=== PATIENT | male | born 1970 | race Two or more races ===

== ENCOUNTER 2018-04-18 06:05 | Inpatient (IN) | payer MEDICAID ==
[~2018-04-18] VITALS: Ht 170.2 cm; Wt 81.6 kg
--- NOTE | 2018-04-18 13:00 | NUR ---
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
[2018-04-18] MEDS ORDERED: Z GUARD REMEDY 2 OZ OINT TP PRN (13:30)
[2018-04-18] MEDS ORDERED: ZOLPIDEM TARTRATE 5 MG TABLET PO PRN (13:30)
[2018-04-18] MEDS ORDERED: MAGNESIUM HYDROXIDE 30 ML UDC PO PRN (13:30)
[2018-04-18] MEDS ORDERED: MAG HYDROX/AL HYDROX/SIMETH 30 ML UDC PO PRN (13:30)
[2018-04-18] MEDS ORDERED: ACETAMINOPHEN 325 MG TABLET PO PRN (13:30)
[2018-04-18] MEDS ORDERED: HYDROCODONE/APAP 5/325MG 1 EACH TABLET PO PRN (13:30)
[2018-04-18] MEDS ORDERED: ONDANSETRON HCL/PF 4 MG/2 ML VIAL IVP PRN (13:30)
[2018-04-18] MEDS ORDERED: MEROPENEM 1 G in IV NS 0.9% 100 ML IV SCH (15:00)
[2018-04-18] MEDS ORDERED: MEROPENEM 1 G in IV NS 0.9% 100 ML IV ONE (15:00)
[2018-04-18] MEDS: IV NS 0.9% 1,000 ML IV PRN (15:05)
[2018-04-18 16:00] VITALS: BP_SYST 133; BP_SYST 99; BP_DIAS 52; BP_DIAS 63
[2018-04-18 16:05] LABS: CREATININE 0.8 mg/dL (0.6-1.3); POTASSIUM 3.8 mmol/L (3.5-5.1)
--- NOTE | 2018-04-18 17:30 | NUR ---
MS RN NOTES MRSA SWAB ON RIGHT NARES IS COLLECTED,SEND TO LAB.
[2018-04-18 18:12] LABS: FREE PSA 0.97 ng/mL (0.00-45); PROSTATE SPECIFIC ANTIGEN SCR 6.33 ng/mL (0.00-4.00)
--- NOTE | 2018-04-18 18:43 | NUR ---
MS RN CLOSING NOTES PT IS LYING ON BED.ALERT/ORIENTED X4.IV LINE IS IN PLACE.RESPIRATION IS EVEN AND NON LABORED.NO SIGNIFICANT CHANGES NOTED IN THE SHIFT.ENDORSED TO SENIOR CHEMIST RN FOR V[facility]A.
[2018-04-18 20:00] VITALS: BP 113/62
[2018-04-18] MEDS: MEROPENEM 1 G in IV NS 0.9% 100 ML IV SCH (21:17)
[2018-04-19 04:00] VITALS: BP 119/72
[2018-04-19] MEDS: MEROPENEM 1 G in IV NS 0.9% 100 ML IV SCH ×3 (05:08→20:59)
[2018-04-19 06:38] LABS: BASOPHILS % (AUTO) 0.3 % (0.0-2.0); EOSINOPHILS % (AUTO) 1.6 % (0.0-6.0); HEMATOCRIT 36 % (39-51); HEMOGLOBIN 12.3 g/dL (13.5-17.5); LYMPHOCYTES % (AUTO) 18.1 % (20.0-44.0); MEAN CORPUSCULAR HGB CONC 34 g/dl (31.0-36.0); MEAN CORPUSCULAR VOLUME 91 fL (80-96); MONOCYTES # (AUTO) 1.1 /CMM (0.1-1.30); MONOCYTES % (AUTO) 9.9 % (2.0-12.0); NEUTROPHILS # (AUTO) 7.6 /CMM (1.8-8.9); NEUTROPHILS % (AUTO) 70.1 % (43.0-81.0); PLATELET COUNT (AUTO) 241 /CMM (150-450); RED BLOOD CELL COUNT(AUTO) 4.01 MIL/uL (4.5-6.0); WHITE BLOOD COUNT (AUTO) 10.9 K/uL (4.3-11.0)
[2018-04-19 06:58] LABS: ALBUMIN 2.9 g/dL (3.4-5.0); BILIRUBIN,TOTAL 0.5 mg/dL (0.2-1.0); CALCIUM, SERUM 7.9 mg/dL (8.5-10.1); CREATININE 0.8 mg/dL (0.6-1.3); PHOSPHORUS 3.2 mg/dL (2.5-4.9); POTASSIUM 4.2 mmol/L (3.5-5.1); TOTAL PROTEIN, SERUM 6.6 g/dL (6.4-8.2)
--- NOTE | 2018-04-19 07:10 | NUR ---
MS RN OPENING NOTES RECEIVED PT LYING ON BED.ALERT/ORIENTED X4.ON ROOM AIR,TOLERATING WELL.IV LINE IS ON LEFT AC G20,SITE IS CLEAN,DRY AND INTACT.NO INFILTRATION NOTED.CAN AMBULATE WELL WITHOUT ASSISTANCE.CONTINENT FOR BOTH BOWEL AND BLADDER PATTERN.DENIES PAIN.SAFETY IS MAINTAINED AT ALL TIMES.BED IS IN LOW POSITION AND LOCKED.CALL LIGHT IS WITHIN REACH.WILL CONTINUE TO MONITOR THE PT CLOSELY.
[2018-04-19 08:00] VITALS: BP 103/62
[2018-04-19] MEDS: IV NS 0.9% 1,000 ML IV PRN (11:19)
--- NOTE | 2018-04-19 12:28 | NUR ---
MS RN NOTES REQUEST GIVEN TO THE [facility] TO RELEASE REPORT OF URINE CULTURE RESULT PER .
[2018-04-19 16:00] VITALS: BP 110/67
--- NOTE | 2018-04-19 18:45 | NUR ---
MS RN CLOSING NOTES PT IS LYING ON BED.DENIES PAIN ON ABDOMEN AND BACK.NO SIGNIFICANT CHANGES NOTED IN THE SHIFT.ENDORSED TO NAIL MILL WORKER RN FOR V[employer]A.
[2018-04-19 20:00] VITALS: BP 101/66
--- NOTE | 2018-04-19 20:00 | NUR ---
MS RN NOTES RECEIVED PTS IN BED A/OX4 ON MS STATUS , PTS IS AMBULATORY , NO SOB NO DISTRESS NOTED , V/S STABLE AFEBRILE , DUE MEDS GIVEN ORDERED , KEPT PTS CLEAN DRY AND COMFORTABLE ,ALL NEEDS ATTENDED TOO ,CALL LIGHT WITHIN REACH , KEPT PTS CLEAN DRY AND COMFORTABLE.
[2018-04-20 04:00] VITALS: BP 104/69
[2018-04-20] MEDS: IV NS 0.9% 1,000 ML IV PRN (04:05)
[2018-04-20] MEDS: MEROPENEM 1 G in IV NS 0.9% 100 ML IV SCH (04:05)
[2018-04-20 06:57] VITALS: BP 104/69
--- NOTE | 2018-04-20 07:00 | NUR ---
MS RN OPENING NOTES RECEIVED PT LYING ON BED.ALERT/ORIENTED X4.ON ROOM AIR,TOLERATING WELL. NO C/O PAIN. IV LINE IS ON LEFT AC G20,SITE IS CLEAN,DRY AND INTACT.NO INFILTRATION NOTED.CAN AMBULATE WELL WITHOUT ASSISTANCE.CONTINENT FOR BOTH BOWEL AND BLADDER PATTERN.DENIES PAIN.SAFETY IS MAINTAINED AT ALL TIMES.BED IS IN LOW POSITION AND LOCKED.CALL LIGHT IS WITHIN REACH.WILL CONTINUE TO MONITOR THE PT CLOSELY.
[2018-04-20 08:00] VITALS: BP 128/70
--- NOTE | 2018-04-20 10:00 | NUR ---
MS RN CLOSING NOTES PT'S DISCHARGE INSTRUCTIONS AND PRESCRIPTION GIVEN. IV REMOVED. BELONGINGS SENT HOME WITH PATIENT. ACCOMPANIED BY GIRLFRIEND; AMBULATORY. ALL NEEDS ATTENDED TO.
== END 2018-04-20 10:15 | disposition home or self-care (01) | DRG 720 ==
LOC: TELE1 12:45 → MEDSG1 14:30
PROVIDERS: ADMIT Internal Medicine; ATTEND Internal Medicine
DX: A41.9 Sepsis, unspecified organism (principal); D63.8 Anemia in other chronic diseases classified elsewhere; N39.0 Urinary tract infection, site not specified; N41.0 Acute prostatitis; Z87.440 Personal history of urinary (tract) infections
CPT/HCPCS: 36415; 80048-TC; 80053-TC; 80061-TC; 83735-TC; 84100-TC; 84153-TC; 84154-TC; 85025-TC; 87081-TC; G0378; J2185; J7030